=== PATIENT | male | born 1945 | race Caucasian/White ===

== ENCOUNTER 2017-05-10 23:16 | Inpatient (IN) | payer MEDICARE, OTHER ==
[~2017-05-10 23:16] MED LIST: ISOVUE-370 76%-LOCM 1 ML ONE
[2017-05-10 23:34] LABS: #Basophils 0.1 thou/uL (0.0-0.2); #Eosinphils 0.3 thou/uL (0.0-0.7); #Lymphocytes 1.8 thou/uL (1.20-3.40); #Monocytes 0.5 thou/uL (0.11-0.59); #Neutrophils 3.8 thou/uL (1.40-6.50); %Basophils 1.1 % (0.0-1.0); %Eosinophils 4.4 % (0.0-10.0); %Lymphocytes 28.6 % (21.0-51.0); %Monocytes 7.1 % (0.0-10.0); Hematocrit 42.4 % (42.0-52.0); Mean Platelet Volume 7.7 fL (7.4-10.4); Red Blood Cell (RBC) Count 4.56 mill/uL (4.70-6.10); White Blood Cell (WBC) Count 6.4 thou/uL (4.8-10.8)
[2017-05-10 23:58] LABS: ALT (SGPT) 14 U/L (8-55); AST (SGOT) 24 U/L (5-34); Alkaline Phosphatase 69 U/L (40-150); Anion Gap 13 mmol/L (10-20); BUN (Urea Nitrogen) 16 mg/dL (8.4-25.7); Bilirubin, Total 0.6 mg/dL (0.2-1.2); Calc. Creatinine Clearance 0 mL/min (70-130); Calcium 9.1 mg/dL (7.8-10.44); Carbon Dioxide 20 mmol/L (23-31); Chloride 109 mmol/L (98-107); Estimated GFR-MDRD 53; Globulin 2.9 g/dL (2.4-3.5); Lipase 27 U/L (8-78); Protein, Total 6.6 g/dL (5.8-8.1)
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
[2017-05-11 00:06] LABS: PTT 28.1 SEC (22.9-36.1); Prothrombin Time 14.2 SEC (12.0-14.7)
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
[2017-05-11] MEDS ORDERED: Acetaminophen 325 MG TAB PO PRN (05:22)
[2017-05-11] MEDS ORDERED: Ondansetron HCl/PF 4 MG/2 ML Vial IVP PRN (05:22)
[2017-05-11] MEDS ORDERED: Ondansetron ODT 4 MG TAB SL PRN (05:22)
[2017-05-11 06:05] VITALS: BMI 35.3
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
[2017-05-11] MEDS ORDERED: Pregabalin 50 MG CAP PO SCH (09:00)
[2017-05-11] MEDS ORDERED: traMADol HCl 50 MG TAB PO PRN ×2 (09:38)
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
--- NOTE | 2017-05-11 11:01 | RAD ---
RIGHT TIBIA FIBULA 2 VIEWS: HISTORY: Calf swelling. COMPARISON: None. FINDINGS: Moderate vascular calcifications. No acute fracture or malalignment. There is mild edema of the ca lf. IMPRESSION: Mild calf edema. Recommend evaluation with MRI with and without contrast if clinical symptoms sugge st. POS: [facility]
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
[2017-05-11] MEDS ORDERED: Dexamethasone 4 MG TAB PO SCH (12:00)
[2017-05-11 12:14] VITALS: BP 146/72; TEMP 98.4
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
[2017-05-11] MEDS ORDERED: Latanoprost 0.005% Ophth Soln 2.5 ml Bottle EA EYE SCH (21:00)
[2017-05-11] MEDS ORDERED: Atorvastatin Calcium 40 MG TAB PO SCH (21:00)
[2017-05-12] MEDS ORDERED: Tamsulosin HCl 0.4 MG CAP PO SCH (09:00)
[2017-05-12] MEDS ORDERED: Nebivolol HCl 2.5 MG TAB PO SCH (09:00)
[2017-05-12] MEDS ORDERED: Losartan Potassium 25 MG TAB PO SCH (09:00)
[2017-05-12] MEDS ORDERED: Aspirin 81 mg Enteric Coated Tablet PO SCH (09:00)
== END 2017-05-11 16:35 | disposition home or self-care (01) | DRG 52 ==
LOC: ERS 23:16 → SURG A 05-11 03:00
PROVIDERS: ADMIT Surgery; ATTEND Surgery
DX: S14.123A Central cord syndrome at C3 level of cervical spinal cord, initial encounter (principal); I82.441 Acute embolism and thrombosis of right tibial vein; M48.02 Spinal stenosis, cervical region; I10 Essential (primary) hypertension; M50.31 Other cervical disc degeneration, high cervical region; V43.52XA Car driver injured in collision with other type car in traffic accident, initial encounter; Y92.410 Unspecified street and highway as the place of occurrence of the external cause
CPT/HCPCS: 36415; 70450; 71010; 71260; 72125; 72141; 72146; 72148; 74177; 80053; 83690; 85025; 85610; 85730; 86850; 86900; 86901; 99292; A4216; G0390; J8540